=== PATIENT | female | born 1985 | race Two or more races ===

== ENCOUNTER 2016-08-28 12:37 | Emergency (ER) | payer BC ==
[2016-08-28] MEDS ORDERED: PROMETHAZINE HCL 25 MG SUPP.RECT PR ONE (12:43)
[2016-08-28] MEDS ORDERED: NORMAL SALINE 1000 ML 1,000 ML IV ONE ×2 (12:44→13:06)
--- NOTE | 2016-08-28 12:44 | ER Document Report ---
ED Medical Screen (RME) - General Stated Complaint: NAUSEA,VOMITING Notes: Patient states vomiting started last night about 6:00 and is unable to keep food or water down. Patient states she thinks she started up about 15 times. No diarrhea. Denies vaginal bleeding. No known fever. No known sick contacts. Patient is 20 weeks and does report some abdominal discomfort. I have greeted and performed a rapid initial assessment of this patient. A comprehensive ED assessment and evaluation of the patient, analysis of test results and completion of the medical decision making process will be conducted by additional ED providers. TRAVEL OUTSIDE OF THE [place] IN LAST 30 DAYS: No - Related Data Allergies/Adverse Reactions: No Known Allergies Allergy (Unverified 08/28/16 12:39) Past Medical History Psychiatric Medical History: Reports: Hx Depression Past Surgical History: Reports: Other - D&C - Immunizations Hx Diphtheria, Pertussis, Tetanus Vaccination: Yes Physical Exam - Abdominal Bowel sounds: Normal Tenderness: Tender - mild
[2016-08-28] MEDS ORDERED: DIPHENHYDRAMINE HCL 50 MG/ML VIAL IV ONE (13:06)
--- NOTE | 2016-08-28 13:07 | ER Document Report ---
ED GI/ - General Chief Complaint: Nausea/Vomiting/Diarrhea Stated Complaint: NAUSEA,VOMITING Mode of Arrival: Ambulatory Information source: Patient Notes: Patient is currently 20 weeks and reports nausea and vomiting that started yesterday. Patient states she's vomited about 15 times today. Patient denies any fever, diarrhea, or vaginal bleeding. Patient denies any urinary symptoms. Patient reports Abdominal tenderness at home that is better now. TRAVEL OUTSIDE OF THE [place] IN LAST 30 DAYS: No - HPI Patient complains to provider of: , Vomiting. No: Vaginal discharge Onset: Yesterday Timing/Duration: Persistent Quality of pain: Achy Pain Level: 1 Context: Vaginal bleeding (Compared to normal period): None Sexual history: Active Associated symptoms: Loss of appetite, Nausea, Vomiting. denies: Diarrhea, Dysuria, Fever, Urinary hesitancy, Urinary frequency, Urinary retention, Urinary urgency Exacerbated by: Denies Relieved by: Denies Recently seen / treated by doctor: No - Related Data Allergies/Adverse Reactions: No Known Allergies Allergy (Unverified 08/28/16 12:39) Past Medical History - General Information source: Patient Last Menstrual Period: 20 weeks - Social History Smoking Status: Never Smoker Chew tobacco use (# tins/day): No Frequency of alcohol use: None Drug Abuse: None Occupation: childcare worker Lives with: Family Family History: None Patient has suicidal ideation: No Patient has homicidal ideation: No Renal/ Medical History: Denies: Hx Peritoneal Dialysis Psychiatric Medical History: Reports: Hx Depression Past Surgical History: Reports: Other - D&C - Immunizations Hx Diphtheria, Pertussis, Tetanus Vaccination: Yes Review of Systems - Review of Systems Constitutional: No symptoms reported. denies: Fever, Recent illness EENT: No symptoms reported Cardiovascular: No symptoms reported. denies: Chest pain Respiratory: No symptoms reported. denies: Cough, Short of breath Gastrointestinal: Abdominal pain - At home, now improved, Nausea, Vomiting, Poor appetite, Poor fluid intake. denies: Diarrhea Genitourinary: No symptoms reported. denies: Dysuria, Flank pain Female Genitourinary: . denies: Vaginal discharge, Vaginal bleeding Musculoskeletal: No symptoms reported. denies: Back pain Skin: No symptoms reported Hematologic/Lymphatic: No symptoms reported Neurological/Psychological: No symptoms reported Physical Exam - Vital signs Vitals: Temp Pulse Resp BP Pulse Ox 99.1 F 135 H 20 114/62 100 08/28/16 12:41 08/28/16 12:41 08/28/16 12:41 08/28/16 12:41 08/28/16 12:41 - General General appearance: Appears well, Alert In distress: None - HEENT Head: Normocephalic, Atraumatic Eyes: Normal Conjunctiva: Normal Nasal: Normal Mouth/Lips: Normal Mucous membranes: Dry Pharynx: Normal Neck: Normal, Supple. No: Lymphadenopathy - Respiratory Respiratory status: No respiratory distress Chest status: Nontender Breath sounds: Normal. No: Rales, Rhonchi, Stridor, Wheezing Chest palpation: Normal - Cardiovascular Rhythm: Tachycardia Heart sounds: S1 appreciated, S2 appreciated Murmur: No - Abdominal Inspection: Gravid female Distension: No distension Bowel sounds: Normal Tenderness: Nontender Organomegaly: No organomegaly - Back Back: Normal, Nontender. No: CVA tenderness - Extremities General upper extremity: Normal inspection, Normal strength General lower extremity: Normal inspection, Normal strength - Neurological Neuro grossly intact: Yes Cognition: Normal Neeraj Coma Scale Eye Opening: Spontaneous Neeraj Coma Scale Verbal: Oriented Stockwell Coma Scale Motor: Obeys Commands Neeraj Coma Scale Total: 15 - Psychological Associated symptoms: Normal affect, Normal mood - Skin Skin Temperature: Warm Skin Moisture: Dry Skin Color: Normal Course - Re-evaluation Re-evalutation: 08/28/16 15:03 Patient reports that nausea has resolved. Patient was able to keep down some oral liquids. Discussed planning care with patient. Patient verbalized understanding and agrees with plan of care. Plan to send patient upstairs for labor check. Patient states that initially she did have some abdominal tenderness but that has seemed to resolved. 08/28/[address] Contreras regarding patient presentation and diagnostic test results. Agrees with discharge plan of care - Vital Signs Vital signs: Temp Pulse Resp BP Pulse Ox 98.2 F 110 H 20 111/67 99 08/28/16 14:18 08/28/16 14:18 08/28/16 14:18 08/28/16 14:18 08/28/16 14:18 - Laboratory Result Diagrams: 08/28/16 12:51 08/28/16 12:51 Laboratory results interpreted by me: 08/28/16 08/28/16 08/28/16 12:51 12:51 12:51 WBC 14.3 H Hgb 11.4 L Hct 33.3 L Seg Neutrophils % 90.4 H Lymphocytes % 6.4 L Monocytes % 2.6 L Absolute Neutrophils 12.9 H Potassium 3.4 L Creatinine 0.47 L Urine Ketones 80 H Ur Leukocyte Esterase SMALL H Urine Ascorbic Acid 20 H Labs- Entire Visit 08/28/16 08/28/16 08/28/16 12:51 12:51 12:51 WBC 14.3 H RBC 3.87 Hgb 11.4 L Hct 33.3 L MCV 86 MCH 29.4 MCHC 34.2 RDW 13.5 Plt Count 250 Seg Neutrophils % 90.4 H Lymphocytes % 6.4 L Monocytes % 2.6 L Eosinophils % 0.3 Basophils % 0.3 Absolute Neutrophils 12.9 H Absolute Lymphocytes 0.9 Absolute Monocytes 0.4 Absolute Eosinophils 0.0 Absolute Basophils 0.0 Sodium 140.8 Potassium 3.4 L Chloride 107 Carbon Dioxide 22 Anion Gap 12 BUN 10 Creatinine 0.47 L Est GFR ( Amer) > 60 Est GFR (Non-Af Amer) > 60 Glucose 85 Calcium 8.9 Total Bilirubin 0.4 Direct Bilirubin 0.1 Indirect Bilirubin Not Reportable Neonat Total Bilirubin Not Reportable AST 18 ALT 30 Alkaline Phosphatase 69 Total Protein 6.4 Albumin 3.7 Lipase 30.1 Urine Color YELLOW Urine Appearance SLIGHTLY-CLOUDY Urine pH 6.0 Ur Specific [place] 1.016 Urine Protein NEGATIVE Urine Glucose (UA) NEGATIVE Urine Ketones 80 H Urine Blood NEGATIVE Urine Nitrite NEGATIVE Urine Bilirubin NEGATIVE Urine Urobilinogen NEGATIVE Ur Leukocyte Esterase SMALL H Urine WBC (Auto) 9 Urine RBC (Auto) 1 Urine Bacteria (Auto) TRACE Squamous Epi Cells Auto 7 Urine Mucus (Auto) RARE Urine Ascorbic Acid 20 H 08/28/16 15:10 Discharge - Discharge Clinical Impression: Dehydration during , Hypokalemia Vomiting Qualifiers: Vomiting type: unspecified Vomiting Intractability: non-intractable Nausea presence: with nausea Qualified Code(s): R11.2 - Nausea with vomiting, unspecified Condition: Stable Disposition: HOME, SELF-CARE Instructions: Intravenous (IV) Fluids ([facility]), Vomiting ([facility]), Antinausea Medication ([facility]), Use of Diphenhydramine Additional Instructions: Return immediately for any new or worsening symptoms Followup directly with labor and delivery for labor check Increase foods in diet rich in potassium Stay well-hydrated You may take Benadryl [id number] as directed to help with your nausea symptoms Prescriptions: Metoclopramide HCl [Reglan 10 mg Tablet] 10 mg PO TID PRN #12 tablet PRN Reason: Forms: Return to Work Referrals: [facility] [Provider Group] - Follow up tomorrow
[2016-08-28 13:22] LABS: ABSOLUTE LYMPHOCYTES (AUTO) 0.9 10^3/uL (0.5-4.7); ABSOLUTE MONOCYTES (AUTO) 0.4 10^3/uL (0.1-1.4); ABSOLUTE NEUT (AUTO) 12.9 10^3/uL (1.7-8.2); BASOPHILS % (AUTO) 0.3 % (0-2); EOSINOPHILS % (AUTO) 0.3 % (0-6); HEMATOCRIT 33.3 % (36.0-47.0); HEMOGLOBIN 11.4 g/dL (12.0-15.5); HGB HCT DIFFERENCE 0.9; LYMPHOCYTES % (AUTO) 6.4 % (13-45); MEAN CORPUSCULAR HEMOGLOBIN 29.4 pg (27.0-33.4); MEAN CORPUSCULAR HGB CONC 34.2 g/dL (32.0-36.0); MEAN CORPUSCULAR VOLUME 86 fl (80-97); MONOCYTES % (AUTO) 2.6 % (3-13); RED BLOOD COUNT 3.87 10^6/uL (3.72-5.28); RED CELL DISTRIBUTION WIDTH 13.5 % (11.5-14.0); SEGMENTED NEUTROPHILS % (AUTO) 90.4 % (42-78); WHITE BLOOD COUNT 14.3 10^3/uL (4.0-10.5)
[2016-08-28 13:32] LABS: APPEARANCE,URINE SLIGHTLY-CLOUDY; BILIRUBIN,URINE NEGATIVE (NEGATIVE); GLUCOSE, URINE NEGATIVE (NEGATIVE); KETONES,URINE 80 mg/dL (NEGATIVE); LEUKOCYTE ESTERASE,URINE SMALL (NEGATIVE); NITRITE,URINE NEGATIVE (NEGATIVE); PROTEIN,URINE NEGATIVE (NEGATIVE); URINE SPECIFIC GRAVITY 1.016; UROBILINOGEN,URINE NEGATIVE mg/dL (<2.0)
[2016-08-28 13:40] LABS: ALANINE AMINOTRANSFERASE 30 U/L (9-52); ALBUMIN 3.7 g/dL (3.5-5.0); ALKALINE PHOSPHATASE 69 U/L (38-126); ANION GAP 12 (5-19); ASPARTATE AMINO TRANSFERASE 18 U/L (14-36); BILIRUBIN,DIRECT 0.1 mg/dL (0.0-0.4); BILIRUBIN,TOTAL 0.4 mg/dL (0.2-1.3); BLOOD UREA NITROGEN 10 mg/dL (7-20); CALCIUM 8.9 mg/dL (8.4-10.2); CARBON DIOXIDE 22 mmol/L (22-30); CHLORIDE 107 mmol/L (98-107); CREATININE RESULT 0.47 mg/dL (0.52-1.25); GLUCOSE 85 mg/dL (75-110); LIPASE 30.1 U/L (23-300); POTASSIUM 3.4 mmol/L (3.6-5.0); SODIUM 140.8 mmol/L (137-145); TOTAL PROTEIN 6.4 g/dL (6.3-8.2)
[2016-08-28] MEDS ORDERED: METOCLOPRAMIDE HCL INJ/PF 10 MG/2 ML SDV IV ONE (13:50)
[2016-08-28 14:18] VITALS: BP 111/67
[2016-08-28] MEDS ORDERED: POTASSIUM CHLORIDE 10 MEQ TABLET.SA PO ONE (15:03)
== END 2016-08-28 15:13 | disposition home or self-care (01) ==
LOC: ER 12:37
DX: E86.0 Dehydration (principal); E87.6 Hypokalemia; R11.2 Nausea with vomiting, unspecified; R19.7 Diarrhea, unspecified; Z3A.20 20 weeks gestation of pregnancy
CPT/HCPCS: 99284; 96361; 96374; 96375; 36415; 83690; 85025; 80053; 81001; J1200; J2765; J7030

== ENCOUNTER 2017-01-06 04:53 | Inpatient (IN) | payer BC, OTHER ==
[2017-01-05 12:28] LABS: APPEARANCE,URINE CLEAR; BILIRUBIN,URINE NEGATIVE (NEGATIVE); GLUCOSE, URINE NEGATIVE (NEGATIVE); KETONES,URINE NEGATIVE (NEGATIVE); LEUKOCYTE ESTERASE,URINE TRACE (NEGATIVE); NITRITE,URINE NEGATIVE (NEGATIVE); PROTEIN,URINE NEGATIVE (NEGATIVE); URINE SPECIFIC GRAVITY 1.003; UROBILINOGEN,URINE NEGATIVE mg/dL (<2.0)
[2017-01-05 12:34] LABS: ABSOLUTE BASOPHILS # (AUTO) 0.1 10^3/uL (0.0-0.2); ABSOLUTE EOSINOPHILS # (AUTO) 0.2 10^3/uL (0.0-0.6); ABSOLUTE LYMPHOCYTES (AUTO) 2.3 10^3/uL (0.5-4.7); ABSOLUTE MONOCYTES (AUTO) 0.5 10^3/uL (0.1-1.4); ABSOLUTE NEUT (AUTO) 8.1 10^3/uL (1.7-8.2); BASOPHILS % (AUTO) 0.5 % (0-2); EOSINOPHILS % (AUTO) 1.5 % (0-6); HEMATOCRIT 30.7 % (36.0-47.0); HEMOGLOBIN 10.5 g/dL (12.0-15.5); HGB HCT DIFFERENCE 0.8; LYMPHOCYTES % (AUTO) 20.3 % (13-45); MEAN CORPUSCULAR HEMOGLOBIN 29.4 pg (27.0-33.4); MEAN CORPUSCULAR HGB CONC 34.2 g/dL (32.0-36.0); MEAN CORPUSCULAR VOLUME 86 fl (80-97); MONOCYTES % (AUTO) 4.9 % (3-13); RED BLOOD COUNT 3.58 10^6/uL (3.72-5.28); RED CELL DISTRIBUTION WIDTH 14.1 % (11.5-14.0); SEGMENTED NEUTROPHILS % (AUTO) 72.8 % (42-78); WHITE BLOOD COUNT 11.1 10^3/uL (4.0-10.5)
[2017-01-05 12:52] LABS: URINE BARBITURATES SCREEN NEGATIVE; URINE METHADONE SCREEN NEGATIVE; URINE OPIATES LOW NEGATIVE; URINE PHENCYCLIDINE SCREEN NEGATIVE
[2017-01-06] MEDS ORDERED: LACTATED RINGERS 1000 ML IV PRN (05:00)
[2017-01-06] MEDS ORDERED: CEFAZOLIN 1 GM/D5W RTU 1 GM/50 ML RTUPB IV PRN (05:00)
[2017-01-06] MEDS ORDERED: LIDOCAINE 0.5% INJ-PF (5 MG/ML) 50 ML SDV SUBCUT PRN (05:00)
[2017-01-06] MEDS ORDERED: PROPOFOL INJ 200 MG/20 ML VIAL IV ONE (07:11)
[2017-01-06] MEDS ORDERED: OXYTOCIN 10 UNIT/ML VIAL ONE (07:11)
[2017-01-06] MEDS ORDERED: FENTANYL CITRATE INJ/PF 100 MCG/2 ML AMPUL ONE ×2 (07:12→10:51)
[2017-01-06] MEDS ORDERED: MIDAZOLAM 2 MG/2 ML INJ ONE (07:12)
[2017-01-06] MEDS ORDERED: FAMOTIDINE INJ/PF 20 MG/2 ML SDV IV ONE (07:13)
[2017-01-06] MEDS ORDERED: EPHEDRINE SULFATE INJ 50 MG/1 ML AMPULE ONE (07:15)
[2017-01-06] MEDS ORDERED: ACETAMINOPHEN 100 ML IV ONE ×2 (07:34→16:00)
--- NOTE | 2017-01-06 09:37 | OPERATIVE REPORT E ---
Operative Report NAME: JACKY TORIBIO : 1985 AGE: 31Y DATE OF SURGERY: 01/06/2017 ROOM: 215 PREOPERATIVE DIAGNOSES: 1. IUP at 39 weeks and 0 days. 2. History of traumatic delivery with history of third-degree laceration, shoulder dystocia, and previous with brachial palsy. SURGEON: ELVIA HERNANDEZ M.D. ANESTHESIA: Dr. Flores with a spinal. FINDINGS: A male in cephalic presentation with Apgars of 9 and 9 and a weight of 8 pounds 13 ounces. COMPLICATIONS: None. ESTIMATED BLOOD LOSS: 600 mL. SPECIMENS REMOVED: None. PROCEDURE: Low transverse hysterotomy section. PROCEDURE IN DETAIL: Patient was taken to the operating room and prepared and draped in a normal sterile fashion in a supine position with a leftward tilt. A transverse skin incision was made with a scalpel and carried through to the underlying layer of fascia with the same scalpel. The fascia was excised in the midline and extended laterally. The rectus muscle was dissected bluntly from the fascia and the rectus muscle was divided. The peritoneal cavity was entered bluntly and the bladder blade was inserted. The hysterotomy was nicked with the scalpel and extended laterally with surgeon finger fracture. The was then delivered atraumatically. The nose and mouth were suctioned with a suction bulb and the cord was clamped and cut and the infant was handed off to waiting pediatricians. The cord blood was collected and the placenta was removed manually. The uterus was exteriorized and cleared of clots and debris. The hysterotomy was closed with 0 Monocryl in a running, locked fashion and a second layer of the same suture was used to imbricate to ensure hemostasis. The uterus was returned to the abdomen and the peritoneal cavity was cleared of clots and debris. The rectus muscle and peritoneum were reapproximated with a mattress stitch of 2-0 Chromic x2. The fascia was closed with 0 Vicryl. The subcutaneous layer was closed with plain catgut and the skin was closed with 4-0 Vicryl. Patient tolerated the procedure well. Sponge, lap, and needle counts correct x2. Patient was taken to recovery in stable condition. DICTATING PHYSICIAN: ELVIA HERNANDEZ M.D. [id number] PHY#: [id number] ID: [id number] JOB#: [id number] ACCT: [id number] cc:ELVIA HERNANDEZ M.D. >
[2017-01-06] MEDS ORDERED: KETOROLAC TROMETHAMINE INJ/PF 30 MG/1 ML SDV ONE (09:51)
[2017-01-06] MEDS ORDERED: OXYTOCIN/NORMAL SALINE 20 UNIT/1,000 ML RTUINJ ONE (09:51)
[2017-01-06] MEDS ORDERED: OXYTOCIN/NORMAL SALINE 20 UNIT/1,000 ML RTUINJ INJ PRN (10:16)
[2017-01-06] MEDS ORDERED: DIPH/PERTUSS(ACELL)/TETANUS VAC/PF 0.5 ML SYR (>=10YO) IM PRN (10:30)
[2017-01-06] MEDS ORDERED: PROMETHAZINE HCL INJ 25 MG/1 ML VIAL IM PRN (10:30)
[2017-01-06] MEDS ORDERED: ACETAMINOPHEN 325 MG TABLET PO PRN (10:30)
[2017-01-06] MEDS ORDERED: MEASLES,MUMPS&RUBELLA VACC/PF 0.5 ML VIAL SUBCUT PRN (10:30)
[2017-01-06] MEDS ORDERED: OXYCODONE-ACETAMINOPHEN 5-325 MG TABLET PO PRN (10:30)
[2017-01-06] MEDS ORDERED: RINGERS SOLUTION,LACTATED 1,000 ML IV SCH (10:30)
[2017-01-06] MEDS ORDERED: FENTANYL CITRATE INJ/PF 100 MCG/2 ML AMPUL IV PRN ×3 (10:33)
[2017-01-06] MEDS: MORPHINE SULFATE 10 MG/ML INJ IV PRN ×2 (11:41→14:50)
[2017-01-06] MEDS ORDERED: ONDANSETRON HCL INJ/PF 4 MG/2 ML SDV ONE (12:09)
[2017-01-06] MEDS: DOCUSATE SODIUM 100 MG CAPSULE PO SCH (18:17)
[2017-01-06] MEDS: KETOROLAC TROMETHAMINE INJ/PF 30 MG/1 ML SDV IV SCH (18:18)
[2017-01-06] MEDS: OXYCODONE-ACETAMINOPHEN 5-325 MG TABLET PO PRN (20:18)
[2017-01-06] MEDS: SIMETHICONE 80 MG TAB.CHEW PO PRN (23:30)
[2017-01-07] MEDS: OXYCODONE-ACETAMINOPHEN 5-325 MG TABLET PO PRN ×3 (00:47→13:24)
[2017-01-07] MEDS: KETOROLAC TROMETHAMINE INJ/PF 30 MG/1 ML SDV IV SCH ×2 (01:50→10:13)
[2017-01-07] MEDS: SIMETHICONE 80 MG TAB.CHEW PO PRN ×2 (05:51→13:27)
[2017-01-07 06:55] LABS: HEMATOCRIT 25.6 % (36.0-47.0); HEMOGLOBIN 8.8 g/dL (12.0-15.5); HGB HCT DIFFERENCE 0.8; MEAN CORPUSCULAR HEMOGLOBIN 29.7 pg (27.0-33.4); MEAN CORPUSCULAR HGB CONC 34.5 g/dL (32.0-36.0); MEAN CORPUSCULAR VOLUME 86 fl (80-97); RED BLOOD COUNT 2.97 10^6/uL (3.72-5.28); WHITE BLOOD COUNT 10.5 10^3/uL (4.0-10.5)
--- NOTE | 2017-01-07 09:17 | PDOC PROGRESS REPORT ---
Subjective-OB Subjective: Post Delivery Day: 31 year old. Denies any needs at this time Sitting up in bed, family at BS, pain under control, voiding, eating well, scant bleeding, + gas Physical Exam (OB) Vital Signs: Temp Pulse Resp BP Pulse Ox 98.6 F 81 16 123/79 98 01/07/17 08:58 01/07/17 08:58 01/07/17 08:58 01/07/17 08:58 01/07/17 08:58 Intake & Output 01/06/17 01/07/17 01/08/17 06:59 06:59 06:59 Intake Total 3600 Output Total 3875 Balance -275 Weight 118 kg - Dressing Removed: No - Opsite Incision: Dressing Closure Type: Sutures - Lochia Lochia Amount: Small 10-25 ml Lochia Color: Rubra/Red - Abdomen Description: Tender, Soft, Round Hernia Present: No Fundal Description: Firm, Midline Fundal Height: u/u - u/2 Objective-Diagnostic Laboratory: 01/07/17 06:12 01/07/17 06:12 WBC 10.5 RBC 2.97 L Hgb 8.8 L Hct 25.6 L MCV 86 MCH 29.7 MCHC 34.5 RDW 14.0 Plt Count 151 Assessment and Plan(PN) - Assessment and Plan (1) Depression Qualifiers: Depression Type: unspecified Qualified Code(s): F32.9 - Major depressive disorder, single episode, unspecified Is this a current diagnosis for this admission?: Yes (3) Delivery by section of full-term infant Is this a current diagnosis for this admission?: Yes (4) Anemia due to acute blood loss Is this a current diagnosis for this admission?: Yes - Time Spent with Patient Time with patient: Less than 15 minutes Medications reviewed and adjusted accordingly: Yes - Disposition Anticipated Discharge: Home Within: within 24 hours
[2017-01-07] MEDS: PRENATAL VITAMIN W-O CA NO5/FE FUMARATE/FA CAPSULE PO SCH (09:34)
[2017-01-07] MEDS: DOCUSATE SODIUM 100 MG CAPSULE PO SCH ×2 (09:34→17:55)
[2017-01-07] MEDS: IBUPROFEN 800 MG TABLET PO SCH ×2 (17:55→23:06)
[2017-01-08] MEDS: OXYCODONE-ACETAMINOPHEN 5-325 MG TABLET PO PRN (00:41)
[2017-01-08] MEDS ORDERED: IBUPROFEN 800 MG TABLET ONE (05:12)
[2017-01-08] MEDS: IBUPROFEN 800 MG TABLET PO SCH ×2 (05:24→11:36)
[2017-01-08] MEDS: PRENATAL VITAMIN W-O CA NO5/FE FUMARATE/FA CAPSULE PO SCH (09:11)
[2017-01-08] MEDS: DOCUSATE SODIUM 100 MG CAPSULE PO SCH (09:11)
--- NOTE | 2017-01-08 10:47 | PDOC DISCHARGE SUMMARY ---
Final Diagnosis Discharge Date: 01/08/17 - Final Diagnosis (1) Delivery by section of full-term infant Is this a current diagnosis for this admission?: Yes Discharge Data - Discharge Medication Home Medications: Ferrous Sulfate [Iron] 1 tab PO DAILY 01/05/17 Pnv No.122/Iron/Folic Acid [ Multi Tablet] 1 tab PO DAILY 01/05/17 Reason(s) for Admission: Ceasarean Section-Primary Procedures: None Intrapartum Procedure(s): : Low Cervical, Transverse - Diagnosis Test Laboratory: Temp Pulse Resp BP Pulse Ox 98.9 F 78 16 132/68 H 100 01/08/17 10:16 01/08/17 10:16 01/08/17 10:16 01/08/17 10:16 01/08/17 10:16 01/05/17 01/05/17 01/07/17 11:48 12:00 06:12 RBC 3.58 L 2.97 L Hgb 10.5 L 8.8 L Hct 30.7 L 25.6 L Urine Opiates Screen NEGATIVE - Discharge information/Instructions Discharge Activity: Balance Activity w/Rest, No Lifting Over 10 Pounds, No Lifting/Push/Pulling, Pelvic Rest, No tub bath, Walk Frequently Discharge Diet: Regular Disposition: HOME, SELF-CARE Follow up with: [facility] in: 5, Days
[2017-01-08] MEDS: SIMETHICONE 80 MG TAB.CHEW PO PRN (11:36)
[2017-01-08 11:51] VITALS: BP 142/79
--- NOTE | 2017-03-08 11:02 | PDOC DELIVERY SUMMARY ---
Delivery Summary - Maternal Hx : III Hx Para: I Hx # Term Pregnancies: 1 Hx Total # of Abortions (Sponateous & Elective): 1 REG: 01/10/17 Gestational Age: 39.2 Ruptured Membranes: AROM Time of Rupture: 08:20 Fluids: Clear - Delivery Presentation: Vertex Heart Rate Monitoring: Done Pre-Operatively Support Person Present: Yes Location: OR : Scheduled, Primary Placenta: Within Normal Limits Delivery of Placenta Date: 01/06/17 Delivery of Placenta Time: 08:22 - Medications Type of Anesthesia:: Spinal - Infant Assess and Care Baby 1 Male Delivery of Infant Date: 01/06/17 Delivery of Time: 08:21 at 1 minute: 8 at 5 minutes: 9 Preprinted Number On Band: [id number] Infant Skin to Skin: No To Nursery At: 08:30 Mode of Transport: Bassinet Delivery Weight: 3995 kg Infant Delivery Length: 21.25 in - Delivery Personnel Shrub Planter: DR DAYDAY Pate RN: NOEMY JUAREZ RN: THEODORA LOVE MD: ELVIA HERNANDEZ
== END 2017-01-08 12:50 | disposition home or self-care (01) | DRG 765 ==
LOC: 2S 04:53
PROVIDERS: ADMIT Obstetrics & Gynecology; ATTEND Obstetrics & Gynecology
PROC: 4A1HXCZ Monitoring of Products of Conception, Cardiac Rate, External Approach (ICD-10-PCS; 2017-01-06)
PROC: 10D00Z1 Extraction of Products of Conception, Low, Open Approach (ICD-10-PCS; principal; 2017-01-06 07:45)
DX: O82 Encounter for cesarean delivery without indication (principal); D62 Acute posthemorrhagic anemia; O99.344 Other mental disorders complicating childbirth; F32.9 Major depressive disorder, single episode, unspecified; O99.02 Anemia complicating childbirth; Z87.891 Personal history of nicotine dependence; Z3A.39 39 weeks gestation of pregnancy; Z37.0 Single live birth
CPT/HCPCS: 1961; 36415; 59025; 80307; 81001; 85025; 85027; 86850; 86900; 86901; 94799; J0131; J1885; J2250; J2270; J2405; J2590; J2704; J3010; J3490; J7120; S0028